=== PATIENT | female | born 1935 | race Caucasian/White ===

== ENCOUNTER → 2017-09-16 | Outpatient (CLI) | payer MEDICARE, OTHER ==
[~2017-09-16] MED LIST: ASPI81 PO; ATOR10TA69 PO; LOSA1TAB37 PO
== END | disposition home or self-care (01) ==
LOC: RADMN 11:37
PROVIDERS: ATTEND Internal Medicine
DX: I67.2 Cerebral atherosclerosis (principal); I67.82 Cerebral ischemia; M19.012 Primary osteoarthritis, left shoulder; M50.322 Other cervical disc degeneration at C5-C6 level; M47.892 Other spondylosis, cervical region; Z91.81 History of falling
CPT/HCPCS: 70450; 72040

== ENCOUNTER → 2017-11-22 | Outpatient (CLI) | payer MEDICARE, OTHER ==
[2017-11-22 11:50] LABS: BASOPHILS % (AUTO) 0.3 % (0.0-2.0); EOSINOPHILS % (AUTO) 0.9 % (1.0-6.0); HEMATOCRIT 39.6 % (36-46); HEMOGLOBIN 13.4 g/dL (12.0-16.0); LYMPHOCYTES # (AUTO) 1.8 K/uL (1.0-4.8); LYMPHOCYTES % (AUTO) 32.4 % (22.0-44.0); MEAN CORPUSCULAR HEMOGLOBIN 31.9 pg (26.0-34.0); MEAN CORPUSCULAR HGB CONC 33.9 G/dL (31.0-37.0); MEAN CORPUSCULAR VOLUME 94 fL (80-100); MONOCYTES # (AUTO) 0.4 K/uL (0.1-1.0); MONOCYTES % (AUTO) 7.8 % (2.0-9.0); NEUTROPHILS # (AUTO) 3.3 K/uL (1.8-7.7); NEUTROPHILS % (AUTO) 58.6 % (40.0-70.0); PLATELET COUNT (AUTO) 234 K/uL (150-450); RED CELL DISTRIBUTION WIDTH 12.5 % (11.5-14.5)
[2017-11-22 12:52] LABS: ALANINE AMINOTRANSFERASE 33 U/L (12-78); ALBUMIN 3.7 g/dL (3.4-5.0); ALKALINE PHOSPHATASE 82 U/L (46-116); ANION GAP 8 mmol/L (8-16); ASPARTATE AMINOTRANSFERASE 27 U/L (15-37); BILIRUBIN,TOTAL 1.2 mg/dL (0.1-1.0); CALCIUM, TOTAL 9.1 mg/dL (8.8-10.5); CARBON DIOXIDE 28 mmol/L (22-29); CHLORIDE 103 mmol/L (98-107); CHOL/HDL RATIO 2.4 (3.9-5.7); CHOLESTEROL 138 mg/dL (131-200); CREATININE 0.82 mg/dL (0.60-1.30); GLUCOSE,RANDOM 156 mg/dL (70-110); HDL CHOLESTEROL 58 mg/dL (40-60); LDL CHOL (CALC.) 30 mg/dL (0-130); POTASSIUM 4.1 mmol/L (3.5-5.1); SODIUM SERUM 139 mmol/L (136-145); THYROID STIMULATING HORMONE 1.88 uIU/mL (0.36-3.74); TOTAL PROTEIN, SERUM 7.5 g/dL (6.4-8.2); TRIGLYCERIDES 248 mg/dL (15-150); UREA NITROGEN, BLOOD 16 mg/dL (7-18)
[2017-11-22 12:53] LABS: GLOMERULAR FILTR. RATE CALC > 60 mL/min (>60)
== END | disposition home or self-care (01) ==
LOC: LABPV 11:15
PROVIDERS: ATTEND Internal Medicine
DX: I10 Essential (primary) hypertension (principal); E78.2 Mixed hyperlipidemia
CPT/HCPCS: 84443

== ENCOUNTER → 2018-04-25 | Outpatient (CLI) | payer MEDICARE, OTHER | END | disposition home or self-care (01) | LOC: RADPV 12:59 | PROVIDERS: ATTEND Internal Medicine | DX: M17.0 Bilateral primary osteoarthritis of knee (principal) ==

== ENCOUNTER → 2018-12-27 | Outpatient (CLI) | payer MEDICARE, OTHER | END | disposition home or self-care (01) | LOC: LABPV 10:13 | PROVIDERS: ATTEND Internal Medicine | DX: M47.812 Spondylosis without myelopathy or radiculopathy, cervical region (principal); M19.011 Primary osteoarthritis, right shoulder; M81.0 Age-related osteoporosis without current pathological fracture | CPT/HCPCS: 72040 ==

== ENCOUNTER → 2021-01-06 | Outpatient (CLI) | payer MEDICARE, OTHER ==
[~2021-01-06] MED LIST changes: +ASPI-1450 PO; -ASPI81 PO
== END | disposition home or self-care (01) ==
LOC: RADPV 10:40
PROVIDERS: ATTEND Podiatrist Foot & Ankle Surgery
DX: M19.072 Primary osteoarthritis, left ankle and foot (principal); M19.071 Primary osteoarthritis, right ankle and foot; M25.775 Osteophyte, left foot; M25.774 Osteophyte, right foot

== ENCOUNTER → 2021-05-01 | Outpatient (CLI) | payer MEDICARE, OTHER | END | disposition home or self-care (01) | LOC: RADPV 13:52 | PROVIDERS: ATTEND Internal Medicine | DX: M19.072 Primary osteoarthritis, left ankle and foot (principal); M77.32 Calcaneal spur, left foot; M25.475 Effusion, left foot | CPT/HCPCS: 73630-TC ==

== ENCOUNTER → 2022-01-13 | Outpatient (CLI) | payer MEDICARE, OTHER ==
[~2022-01-13] VITALS: Ht 149.9 cm; Wt 57.8 kg
[~2022-01-13] MED LIST changes: +ACET-3385 PO; +DOCU-385 PO; +DULO20CA71 PO; +LOSA-382 PO
[2022-01-13 10:34] VITALS: BP 178/70
== END | disposition home or self-care (01) ==
LOC: SRCNTR 09:24
PROVIDERS: ATTEND Internal Medicine
DX: R06.00 Dyspnea, unspecified (principal); M79.89 Other specified soft tissue disorders; I10 Essential (primary) hypertension; E78.5 Hyperlipidemia, unspecified; F32.A Depression, unspecified
CPT/HCPCS: G0463

== ENCOUNTER → 2022-01-13 | Outpatient (CLI) | payer MEDICARE, OTHER | END | disposition home or self-care (01) | LOC: RADMN 11:52 | PROVIDERS: ATTEND Internal Medicine | DX: R06.00 Dyspnea, unspecified (principal); I70.0 Atherosclerosis of aorta; M19.012 Primary osteoarthritis, left shoulder; M19.011 Primary osteoarthritis, right shoulder; M47.814 Spondylosis without myelopathy or radiculopathy, thoracic region; M41.84 Other forms of scoliosis, thoracic region; R22.43 Localized swelling, mass and lump, lower limb, bilateral | CPT/HCPCS: 71046 ==

== ENCOUNTER → 2022-02-03 | Outpatient (CLI) | payer MEDICARE, OTHER ==
[~2022-02-03] MED LIST changes: +AMLO-257 PO; -LOSA1TAB37 PO
[2022-02-03 14:13] VITALS: BP 176/72
== END | disposition home or self-care (01) ==
LOC: SRCNTR 13:59
PROVIDERS: ATTEND Internal Medicine
DX: I10 Essential (primary) hypertension (principal); Z09 Encounter for follow-up examination after completed treatment for conditions other than malignant neoplasm; E78.5 Hyperlipidemia, unspecified; R06.00 Dyspnea, unspecified
CPT/HCPCS: G0463; Z7500

== ENCOUNTER → 2022-02-09 | Outpatient (CLI) | payer MEDICARE, OTHER | END | disposition home or self-care (01) | LOC: RADPV 09:24 | PROVIDERS: ATTEND Internal Medicine | DX: R06.00 Dyspnea, unspecified (principal) | CPT/HCPCS: 93306 ==